=== PATIENT | female | born 2005 | race Caucasian/White ===

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

== ENCOUNTER 2025-06-19 13:05 | Emergency (ER) | payer OTHER, SELFPAY ==
[2025-06-19 13:13] VITALS: BP 118/75; PULSE 67; RESP 20; TEMP 36.9; O2SAT 95
[2025-06-19 13:37] LABS: EDUAAPPEAR Clear; EDUABILI Negative (Negative); EDUABLOOD Negative (Negative); EDUACOLOR1 Yellow; EDUAGLUCOSE Negative (Negative); EDUAKETONE Negative (Negative); EDUALEUKO Negative (Negative); EDUANITRATE Negative (Negative); EDUAPH 8.5; EDUAPROTEIN Negative (Negative); EDUASPGRAVITY 1.010; EDUAUROBILI 0.2
--- NOTE | 2025-06-19 13:44 | ED.FEMALEGU ---
HPI - Female Genitourinary General Chief complaint: Urogenital-Female Stated complaint: std testing Time Seen by Provider: 06/19/25 13:15 Source: patient Mode of arrival: ambulatory Limitations: no limitations History of Present Illness HPI Narrative: 19 yo F presents with c/o increase in vaginal discharge. Reports discharge is clear and has a strong odor. Concerned for BV. Would all like STI testing just to be safe. All systems reviewed and negative except as noted above. Related Data Allergies Allergy/AdvReac Type Severity Reaction Status Date / Time No Known Allergies Allergy Verified 06/19/25 13:13 [facility] Surgical History Surgical History H/O wisdom tooth extraction Family History Family History Grandparent Breast cancer Hypertension Social History Social History Tobacco type: e-cigarettes/vaping Alcohol intake: current Alcohol use details: occasional Substance use: never Do You Feel Safe in your Home?: Yes Lack of Transportation: No Lack of Food: Never True Current Housing: I Have Housing Concerned About Future Housing: No Difficulty Paying Gas/Electric Bills: No Difficulty Paying for Meds: No Currently Unemployed: No Education: High School Diploma/GED Difficulty w/ Childcare or Family Care: No Living arrangements: with family Occupation/Education: student Comments At time of signature, agree with nursing past medical, surgical, social and family history. There is no relevant family history pertinent to the presenting complaint. Exam Narrative: GENERAL: This is a well-nourished, well-developed patient, in no apparent distress. HEAD: normocephalic, atraumatic. EYES: PERRL. Sclera clear/white. Vision is grossly intact. EARS: External ears normal NOSE: External nose normal NECK: Neck supple, non-tender without lymphadenopathy, masses or thyromegaly. CARDIOVASCULAR: Regular rate and rhythm without murmurs, gallops, or rubs. RESPIRATORY: Clear to auscultation. Breath sounds equal bilaterally. No wheezes, rales, or rhonchi. SKIN: warm, Dry, intact with no suspicious lesions or rash, good texture and turgor. NEURO: awake, alert, and oriented to person, place and time. There were no obvious focal neurologic abnormalities. EXTREMITIES: No joint tenderness, effusion, or edema noted. Course Course Level of Care: Express Care Visit Vital Signs Vital signs: Vital Signs Temperature 36.9 C 06/19/25 13:13 Pulse Rate 67 06/19/25 13:13 Respiratory Rate 20 06/19/25 13:13 Blood Pressure 118/75 06/19/25 13:13 Pulse Oximetry 95 06/19/25 13:13 Oxygen Delivery Room Air 06/19/25 13:13 Temperature 36.9 C 06/19/25 13:13 Pulse Rate 67 06/19/25 13:13 Respiratory Rate 20 06/19/25 13:13 Blood Pressure 118/75 06/19/25 13:13 Pulse Oximetry 95 06/19/25 13:13 Oxygen Delivery Room Air 06/19/25 13:13 Reviewed MDM - Female Genitourinary MDM Narrative Medical decision making narrative: urinalysis normal. Testing for BV, gonorrhea, chlamydia and Trichomonas ordered. Results pending. Will treat for BV today due to patient's symptoms. Patient agrees with plan of care. Differential Diagnosis Differential diagnosis: Likely urinary tract infection, bacterial vaginosis and trichomoniasis Lab Data Labs: Lab Results 06/19/25 Range/Units 13:27 POC Urine Color Yellow POC Urine Clarity Clear POC Urine pH 8.5 POC Ur Specif [place] 1.010 POC Urine Protein Negative (Negative) POC Ur Glucose (UA) Negative (Negative) POC Urine Ketones Negative (Negative) POC Urine Blood Negative (Negative) POC Urine Nitrite Negative (Negative) POC Urine Bilirubin Negative (Negative) POC Urine Urobilinogen 0.2 POC U Leukocyte Esteras Negative (Negative) Discharge Plan Discharge Clinical Impression: Bacterial vaginosis Patient Disposition: Home Condition: Stable Instructions: Antibiotic Form, Bacterial Vaginosis (ED) Additional Instructions: Take antibiotic as prescribed until gone. your testing for gonorrhea, chlamydia and Trichomonas will take 48-72 hours. If you have a positive result we will call you at that time and prescribed treatment. 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 Patient Language: Estonian Prescriptions: New metronidazole 500 mg tablet 500 mg PO BID 7 Days Qty: 14 0RF Follow-up/Referrals: PHYSICIAN,STAFF COMMAND AND CONTROL OFFICER [Primary Care Provider, Internal Medicine] Time of Disposition: 13:40
[2025-06-19 20:11] LABS: Trichomonas Vag PCR NOT DETECTED (NOT DETECTE)
== END 2025-06-19 13:46 | disposition home or self-care (01) ==
PROVIDERS: Emergency Provider Nurse Practitioner Family
DX: N76.0 Acute vaginitis (principal); Z11.3 Encounter for screening for infections with a predominantly sexual mode of transmission; F17.290 Nicotine dependence, other tobacco product, uncomplicated
CPT/HCPCS: 81003; 87491; 87591; 87661; 87798; 99213; G0463